=== PATIENT | male | born 1945 | race Caucasian/White ===

== ENCOUNTER 2019-04-01 05:50 | Inpatient (IN) ==
[2019-04-01] MEDS ORDERED: SODIUM CHLORIDE 0.9% 1,000 ML IV SCH (06:00)
[2019-04-01 07:01] LABS: INR 4.9
[2019-04-01 07:05] LABS: Calcium 8.7 MG/DL (8.5-10.1); Osmolality,Calculated 282.4 MOS/KG (273-304)
[2019-04-01 07:06] LABS: PT Patient Result 52.6 SECS (9.6-12.2)
[2019-04-01] MEDS ORDERED: MAGNESIUM SULF RIDER 4 GM in PREMIX 1 EACH IV PRN (07:25)
[2019-04-01] MEDS ORDERED: ONDANSETRON 4 MG/2 ML VIAL IV PRN (07:25)
[2019-04-01] MEDS ORDERED: MAGNESIUM SULF RIDER 2 GM in PREMIX 1 EACH IV PRN (07:25)
[2019-04-01] MEDS ORDERED: DOCUSATE SODIUM 100 MG CAPSULE PO PRN (07:25)
[2019-04-01] MEDS ORDERED: ZALEPLON 5 MG CAPSULE PO PRN (07:25)
[2019-04-01] MEDS ORDERED: ACETAMINOPHEN 325 MG TABLET PO PRN (07:25)
[2019-04-01 07:56] LABS: Basophils % 0.6 % (0.0-0.8); Eosinophils # 0.1 10*3/uL (0.0-0.87); Eosinophils % 2.1 % (0.00-10.9); Hemoglobin 13.3 GM/DL (14.0-18.0); Immature Granulocytes % 0.4 %; Immature Granulocytes Absolute 0.03 #; Lymphocytes # 1.6 10*3/uL (1.4-4.0); Lymphocytes % 23.3 % (21.2-54.2); Mean Corpuscular HGB Conc 31.7 GM/DL (32-36); Mean Corpuscular Volume 99.1 FL (87-102); Mean Platelet Volume 10.6 FL (9.6-12.0); Monocytes % 8.7 % (1.7-12.7); Neutrophils % 64.9 % (38.7-73.9); Platelet Count 155 T/CUMM (130-400); Red Blood Count 4.24 MC/CUMM (3.8-5.5); Red Cell Distribution Width 14.7 % (9.3-17.3); White Blood Count 6.7 T/CUMM (4-12)
[2019-04-01 08:08] LABS: Troponin I < 0.015 NG/ML (0.00-0.045)
[2019-04-01 08:13] LABS: Free T4 (Free Thyroxine) 1.16 NG/DL (0.76-1.46)
[2019-04-01] MEDS: ASPIRIN EC 81 MG TABLET PO SCH (08:36)
[2019-04-01] MEDS: DILTIAZEM CD 180 MG CAPSULE PO SCH (08:36)
[2019-04-01] MEDS: ATORVASTATIN 20 MG TABLET PO SCH (08:37)
[2019-04-01] MEDS: POTASSIUM CHLORIDE 20 MEQ TABLET PO SCH (08:37)
[2019-04-01] MEDS: glipiZIDE 5 MG TABLET PO SCH (08:37)
[2019-04-01] MEDS: ISOSORBIDE MONONITRATE 60 MG TABLET PO SCH (08:37)
[2019-04-01] MEDS: FERROUS SULFATE 325 MG TABLET PO SCH (08:37)
[2019-04-01] MEDS: METOPROLOL SUCCINATE XL 100 MG TABLET PO SCH ×2 (08:38→21:50)
[2019-04-01] MEDS: PANTOPRAZOLE 40 MG TABLET PO SCH (08:38)
[2019-04-01] MEDS: GABAPENTIN 300 MG CAPSULE PO SCH ×2 (08:38→21:50)
[2019-04-01] MEDS: PYRIDOSTIGMINE 60 MG TABLET PO SCH ×5 (08:40→21:50)
[2019-04-01] MEDS ORDERED: DEXTROSE 50% 25 GM/50 ML VIAL IV PRN (09:03)
[2019-04-01] MEDS ORDERED: GLUCAGON 1 MG VIAL IM PRN (09:03)
[2019-04-01] MEDS: FUROSEMIDE 40 MG/4 ML VIAL IV SCH ×2 (09:32→15:44)
[2019-04-01] MEDS: INSULIN LISPRO 100 UNIT/ML SUBCUT SCH ×3 (12:01→21:02)
[2019-04-01] MEDS ORDERED: ALBUTEROL 1.25 MG/3 ML NEB RESP TX PRN (14:24)
[2019-04-01 18:01] LABS: Apearance,Urine CLEAR (Clear); Bilirubin,Urine Negative (Negative); Blood, Urine Negative (Negative); Glucose,Urine (UA) Negative (Negative); Ketones,Urine Negative (Negative); Nitrite,Urine Negative (Negative); Protein,Urine Negative; RBC,Urine 1 /HPF (0-4); Squamous Epithelial Cell,Urine Occasional /HPF (0-10); Urine Color Straw (Yellow); Urine Specific Gravity 1.005 (1.001-1.035); Urine Urobilinogen < 2.0 EU/DL (0.2-1.0); WBC,Urine 1 /HPF (0-6)
[2019-04-02 05:01] LABS: Basophils % 0.7 % (0.0-0.8); Eosinophils # 0.2 10*3/uL (0.0-0.87); Eosinophils % 2.8 % (0.00-10.9); Hematocrit 40.9 VOL% (42.0-52.0); Hemoglobin 12.8 GM/DL (14.0-18.0); Immature Granulocytes % 0.7 %; Immature Granulocytes Absolute 0.04 #; Lymphocytes # 1.7 10*3/uL (1.4-4.0); Lymphocytes % 27.3 % (21.2-54.2); Mean Corpuscular HGB Conc 31.3 GM/DL (32-36); Mean Corpuscular Volume 99.5 FL (87-102); Monocytes % 9.8 % (1.7-12.7); Neutrophils % 58.7 % (38.7-73.9); Platelet Count 141 T/CUMM (130-400); Red Blood Count 4.11 MC/CUMM (3.8-5.5); Red Cell Distribution Width 14.4 % (9.3-17.3); White Blood Count 6.1 T/CUMM (4-12)
[2019-04-02 05:10] LABS: INR 3.7
[2019-04-02 05:34] LABS: Calcium 8.5 MG/DL (8.5-10.1); Osmolality,Calculated 283.4 MOS/KG (273-304)
[2019-04-02 06:06] LABS: PT Patient Result 40.1 SECS (9.6-12.2)
[2019-04-02] MEDS: ATORVASTATIN 20 MG TABLET PO SCH (08:48)
[2019-04-02] MEDS: ASPIRIN EC 81 MG TABLET PO SCH (08:48)
[2019-04-02] MEDS: ISOSORBIDE MONONITRATE 60 MG TABLET PO SCH (08:48)
[2019-04-02] MEDS: DILTIAZEM CD 180 MG CAPSULE PO SCH (08:48)
[2019-04-02] MEDS: FERROUS SULFATE 325 MG TABLET PO SCH (08:48)
[2019-04-02] MEDS: PYRIDOSTIGMINE 60 MG TABLET PO SCH ×4 (08:49→22:44)
[2019-04-02] MEDS: POTASSIUM CHLORIDE 20 MEQ TABLET PO SCH (08:49)
[2019-04-02] MEDS: FUROSEMIDE 40 MG/4 ML VIAL IV SCH ×2 (08:49→16:41)
[2019-04-02] MEDS: PANTOPRAZOLE 40 MG TABLET PO SCH (08:49)
[2019-04-02] MEDS: METOPROLOL SUCCINATE XL 100 MG TABLET PO SCH ×2 (08:49→22:44)
[2019-04-02] MEDS: GABAPENTIN 300 MG CAPSULE PO SCH ×2 (08:49→22:44)
[2019-04-02] MEDS: glipiZIDE 5 MG TABLET PO SCH (08:49)
[2019-04-02] MEDS: INSULIN LISPRO 100 UNIT/ML SUBCUT SCH ×4 (08:50→22:42)
[2019-04-02] MEDS ORDERED: DILTIAZEM CD 120 MG CAPSULE PO ONE (10:38)
[2019-04-02 11:58] LABS: ABG HCO3 27.1 MMOL/L (20-26); ABG Oxygen Saturation 98.8 % (95-100); ABG PCO2 38.2 MM HG (35-48); ABG PH 7.456 (7.35-7.45); ABG TCO2 23.3 MMOL/L (23-27); Allen Test Positive
[2019-04-02] MEDS: metOLazone 5 MG TABLET PO SCH (22:42)
[2019-04-02] MEDS: MAGNESIUM OXIDE 400 MG TABLET PO SCH (22:43)
[2019-04-02] MEDS: DILTIAZEM CD 240 MG CAPSULE PO SCH (22:44)
[2019-04-03 05:56] LABS: Basophils % 0.3 % (0.0-0.8); Eosinophils # 0.2 10*3/uL (0.0-0.87); Eosinophils % 3.2 % (0.00-10.9); Hemoglobin 12.9 GM/DL (14.0-18.0); Immature Granulocytes % 0.3 %; Immature Granulocytes Absolute 0.02 #; Lymphocytes # 1.5 10*3/uL (1.4-4.0); Lymphocytes % 24.5 % (21.2-54.2); Mean Corpuscular HGB Conc 32.3 GM/DL (32-36); Mean Corpuscular Volume 97.8 FL (87-102); Mean Platelet Volume 10.1 FL (9.6-12.0); Monocytes % 8.3 % (1.7-12.7); Neutrophils % 63.4 % (38.7-73.9); Platelet Count 150 T/CUMM (130-400); Red Blood Count 4.09 MC/CUMM (3.8-5.5); Red Cell Distribution Width 14.5 % (9.3-17.3); White Blood Count 6.2 T/CUMM (4-12)
[2019-04-03 06:12] LABS: INR 2.2
[2019-04-03 06:20] LABS: Calcium 8.8 MG/DL (8.5-10.1); Osmolality,Calculated 282.5 MOS/KG (273-304)
[2019-04-03 06:22] LABS: PT Patient Result 23.9 SECS (9.6-12.2)
[2019-04-03] MEDS: INSULIN LISPRO 100 UNIT/ML SUBCUT SCH ×5 (08:14→22:56)
[2019-04-03] MEDS: FUROSEMIDE 40 MG/4 ML VIAL IV SCH ×2 (09:11→17:35)
[2019-04-03] MEDS: DILTIAZEM CD 240 MG CAPSULE PO SCH ×2 (09:12→22:53)
[2019-04-03] MEDS: POTASSIUM CHLORIDE 20 MEQ TABLET PO SCH (09:13)
[2019-04-03] MEDS: GABAPENTIN 300 MG CAPSULE PO SCH ×2 (09:15→22:53)
[2019-04-03] MEDS: PYRIDOSTIGMINE 60 MG TABLET PO SCH ×4 (09:15→22:53)
[2019-04-03] MEDS: MAGNESIUM OXIDE 400 MG TABLET PO SCH ×2 (09:15→22:54)
[2019-04-03] MEDS: ATORVASTATIN 20 MG TABLET PO SCH (09:16)
[2019-04-03] MEDS: metOLazone 5 MG TABLET PO SCH (09:16)
[2019-04-03] MEDS: ISOSORBIDE MONONITRATE 60 MG TABLET PO SCH (09:17)
[2019-04-03] MEDS: PANTOPRAZOLE 40 MG TABLET PO SCH (09:17)
[2019-04-03] MEDS: ASPIRIN EC 81 MG TABLET PO SCH (09:17)
[2019-04-03] MEDS: FERROUS SULFATE 325 MG TABLET PO SCH (09:17)
[2019-04-03] MEDS: glipiZIDE 5 MG TABLET PO SCH (09:17)
[2019-04-03] MEDS: METOPROLOL SUCCINATE XL 100 MG TABLET PO SCH ×2 (09:18→22:53)
[2019-04-03] MEDS ORDERED: WARFARIN 7.5 MG TABLET PO ONE (18:00)
[2019-04-04 05:18] LABS: Basophils % 0.4 % (0.0-0.8); Eosinophils # 0.4 10*3/uL (0.0-0.87); Hematocrit 42.8 VOL% (42.0-52.0); Hemoglobin 13.7 GM/DL (14.0-18.0); Immature Granulocytes % 0.3 %; Immature Granulocytes Absolute 0.02 #; Lymphocytes # 1.4 10*3/uL (1.4-4.0); Lymphocytes % 19.5 % (21.2-54.2); Mean Corpuscular Volume 96.6 FL (87-102); Monocytes % 8.9 % (1.7-12.7); Neutrophils % 65.9 % (38.7-73.9); Platelet Count 170 T/CUMM (130-400); Red Blood Count 4.43 MC/CUMM (3.8-5.5); Red Cell Distribution Width 14.1 % (9.3-17.3); White Blood Count 7.4 T/CUMM (4-12)
[2019-04-04 05:19] LABS: INR 1.8; PT Patient Result 19.3 SECS (9.6-12.2)
[2019-04-04 05:28] LABS: Calcium 8.7 MG/DL (8.5-10.1); Osmolality,Calculated 287.4 MOS/KG (273-304)
[2019-04-04] MEDS: ASPIRIN EC 81 MG TABLET PO SCH (09:17)
[2019-04-04] MEDS: POTASSIUM CHLORIDE 20 MEQ TABLET PO PRN ×2 (09:17→11:32)
[2019-04-04] MEDS: metOLazone 5 MG TABLET PO SCH (09:17)
[2019-04-04] MEDS: MAGNESIUM OXIDE 400 MG TABLET PO SCH ×2 (09:17→20:31)
[2019-04-04] MEDS: glipiZIDE 5 MG TABLET PO SCH (09:17)
[2019-04-04] MEDS: POTASSIUM CHLORIDE 20 MEQ TABLET PO SCH (09:18)
[2019-04-04] MEDS: METOPROLOL SUCCINATE XL 100 MG TABLET PO SCH ×2 (09:18→20:31)
[2019-04-04] MEDS: DILTIAZEM CD 240 MG CAPSULE PO SCH ×2 (09:18→20:31)
[2019-04-04] MEDS: GABAPENTIN 300 MG CAPSULE PO SCH ×2 (09:18→20:31)
[2019-04-04] MEDS: ISOSORBIDE MONONITRATE 60 MG TABLET PO SCH (09:18)
[2019-04-04] MEDS: PYRIDOSTIGMINE 60 MG TABLET PO SCH ×4 (09:18→20:31)
[2019-04-04] MEDS: FERROUS SULFATE 325 MG TABLET PO SCH (09:18)
[2019-04-04] MEDS: PANTOPRAZOLE 40 MG TABLET PO SCH (09:18)
[2019-04-04] MEDS: ATORVASTATIN 20 MG TABLET PO SCH (09:18)
[2019-04-04] MEDS: FUROSEMIDE 40 MG/4 ML VIAL IV SCH (09:19)
[2019-04-04] MEDS: INSULIN LISPRO 100 UNIT/ML SUBCUT SCH ×4 (09:19→20:29)
[2019-04-04] MEDS: ENOXAPARIN 100 MG/ML SYRINGE SUBCUT SCH (12:54)
[2019-04-04] MEDS: FUROSEMIDE 40 MG TABLET PO SCH (15:24)
[2019-04-04] MEDS ORDERED: WARFARIN 7.5 MG TABLET PO ONE (18:00)
[2019-04-05 05:38] LABS: Basophils % 0.4 % (0.0-0.8); Eosinophils # 0.5 10*3/uL (0.0-0.87); Eosinophils % 6.5 % (0.00-10.9); Hematocrit 44.2 VOL% (42.0-52.0); Hemoglobin 14.6 GM/DL (14.0-18.0); Immature Granulocytes % 0.4 %; Immature Granulocytes Absolute 0.03 #; Lymphocytes # 1.7 10*3/uL (1.4-4.0); Lymphocytes % 22.4 % (21.2-54.2); Mean Corpuscular Volume 94.2 FL (87-102); Mean Platelet Volume 9.9 FL (9.6-12.0); Monocytes % 9.9 % (1.7-12.7); Neutrophils % 60.4 % (38.7-73.9); Platelet Count 183 T/CUMM (130-400); Red Blood Count 4.69 MC/CUMM (3.8-5.5); Red Cell Distribution Width 13.7 % (9.3-17.3); White Blood Count 7.7 T/CUMM (4-12)
[2019-04-05 05:51] LABS: INR 1.8; PT Patient Result 19.5 SECS (9.6-12.2)
[2019-04-05 07:32] LABS: Calcium 9.2 MG/DL (8.5-10.1); Osmolality,Calculated 284.7 MOS/KG (273-304)
[2019-04-05] MEDS: INSULIN LISPRO 100 UNIT/ML SUBCUT SCH ×5 (08:09→20:36)
[2019-04-05] MEDS: DILTIAZEM CD 240 MG CAPSULE PO SCH ×2 (08:25→20:31)
[2019-04-05] MEDS: FUROSEMIDE 40 MG TABLET PO SCH ×2 (08:25→17:03)
[2019-04-05] MEDS: FERROUS SULFATE 325 MG TABLET PO SCH (08:26)
[2019-04-05] MEDS: ASPIRIN EC 81 MG TABLET PO SCH (08:26)
[2019-04-05] MEDS: MAGNESIUM OXIDE 400 MG TABLET PO SCH ×2 (08:26→20:30)
[2019-04-05] MEDS: PANTOPRAZOLE 40 MG TABLET PO SCH (08:26)
[2019-04-05] MEDS: POTASSIUM CHLORIDE 20 MEQ TABLET PO SCH (08:26)
[2019-04-05] MEDS: ATORVASTATIN 20 MG TABLET PO SCH (08:26)
[2019-04-05] MEDS: PYRIDOSTIGMINE 60 MG TABLET PO SCH ×4 (08:26→20:30)
[2019-04-05] MEDS: glipiZIDE 5 MG TABLET PO SCH (08:26)
[2019-04-05] MEDS: METOPROLOL SUCCINATE XL 100 MG TABLET PO SCH ×2 (08:26→20:30)
[2019-04-05] MEDS: ISOSORBIDE MONONITRATE 60 MG TABLET PO SCH (08:26)
[2019-04-05] MEDS: GABAPENTIN 300 MG CAPSULE PO SCH ×2 (08:27→20:31)
[2019-04-05] MEDS: ENOXAPARIN 100 MG/ML SYRINGE SUBCUT SCH (14:23)
[2019-04-05] MEDS ORDERED: WARFARIN 7.5 MG TABLET PO ONE (18:00)
[2019-04-06 07:04] LABS: INR 1.9; PT Patient Result 20.9 SECS (9.6-12.2)
[2019-04-06] MEDS: PYRIDOSTIGMINE 60 MG TABLET PO SCH ×3 (07:55→17:23)
[2019-04-06] MEDS: INSULIN LISPRO 100 UNIT/ML SUBCUT SCH ×3 (07:55→16:02)
[2019-04-06] MEDS: ISOSORBIDE MONONITRATE 60 MG TABLET PO SCH (08:47)
[2019-04-06] MEDS: PANTOPRAZOLE 40 MG TABLET PO SCH (08:47)
[2019-04-06] MEDS: ATORVASTATIN 20 MG TABLET PO SCH (08:48)
[2019-04-06] MEDS: ASPIRIN EC 81 MG TABLET PO SCH (08:48)
[2019-04-06] MEDS: FUROSEMIDE 40 MG TABLET PO SCH ×3 (08:48→15:15)
[2019-04-06] MEDS: POTASSIUM CHLORIDE 20 MEQ TABLET PO SCH (08:48)
[2019-04-06] MEDS: MAGNESIUM OXIDE 400 MG TABLET PO SCH (08:48)
[2019-04-06] MEDS: METOPROLOL SUCCINATE XL 100 MG TABLET PO SCH (08:48)
[2019-04-06] MEDS ORDERED: DILTIAZEM CD 120 MG CAPSULE PO SCH (09:00)
[2019-04-06] MEDS: ENOXAPARIN 100 MG/ML SYRINGE SUBCUT SCH (11:30)
[2019-04-06] MEDS ORDERED: PROPOFOL 200 MG/20 ML VIAL IV ONE (13:09)
[2019-04-06] MEDS ORDERED: LIDOCAINE 2% 5 ML VIAL ONE (13:09)
[2019-04-06] MEDS ORDERED: ETOMIDATE 40 MG/20 ML VIAL IV ONE (13:09)
[2019-04-06] MEDS: FERROUS SULFATE 325 MG TABLET PO SCH (14:38)
[2019-04-06] MEDS: glipiZIDE 5 MG TABLET PO SCH (14:38)
[2019-04-06] MEDS: GABAPENTIN 300 MG CAPSULE PO SCH (14:39)
[2019-04-06 16:58] VITALS: BP 125/62
[2019-04-06] MEDS ORDERED: WARFARIN 3 MG TABLET PO SCH (18:00)
[2019-04-06] MEDS ORDERED: WARFARIN 5 MG TABLET PO SCH (18:00)
== END 2019-04-06 18:00 | disposition home or self-care (01) | DRG 291 ==
LOC: N.CL 05:50 → N.TELES 07:25
PROVIDERS: ADMIT Internal Medicine Clinical Cardiac Electrophysiology; ATTEND Internal Medicine Clinical Cardiac Electrophysiology